=== PATIENT | male | born 1960 | race Caucasian/White ===

== ENCOUNTER 2025-05-17 02:06 | Day surgery (SDC) | payer MEDICARE, SELFPAY ==
[2025-05-02 14:03] VITALS: BMI 29.3
--- OUTSIDE RECORDS SUMMARY | 2025-05-17 02:10 | XMS_ITS | Clinical Summary ---
Author Organization [facility] Address [address] [place] [address] Care Team Providers Care Rental Sales Agent Name Role Phone Mark Gutiérrez MD Primary Care Provider [phone] Allergies Active Allergy Reactions Criticality Noted Date Comments Iodinated Contrast Media Sneezing Low Medications amLODIPine (NORVASC) 5 mg tablet Take 1 tablet (5 mg total) by mouth daily. 90 tablet 1 8 Active atorvastatin (LIPITOR) 40 mg tablet Take 1 tablet (40 mg total) by mouth daily. 90 tablet 1 8 Active lisinopril (PRINIVIL,ZESTR IL) 40 mg tablet Take 1 tablet (40 mg total) by mouth daily. 90 tablet 1 8 Active lidocaine 5 % gel Apply 2 mL topically 7 Active cyclobenzaprine (FLEXERIL) 5 mg tablet Take 1 tablet (5 mg total) by mouth 3 (three) times a day as needed for muscle spasms 60 tablet Active Additional Information Patient not taking.Reported on 07/10/2021 Active Problems Problem Noted Date Diagnosed Date Hereditary and idiopathic neuropathy 01/10/2021 Assessment & Plan (07/10/2021 12:05 PM CDT): Patient has idiopathic peripheral neuropathy. He prefers the use of ejuw-fxy-zvhsknl alpha lipoic acid for reduction of dysesthesia and paresthesia in his feet and legs to that of gabapentin. He will continue using the czhb-osj-jyjyvtq therapy at this time. He will follow-up in neurology clinic on an as-needed basis. Assessment & Plan (01/10/2021 12:04 PM GROUP WORKER): Patient has documented idiopathic peripheral neuropathy from prior evaluation and management of [facility]. Prior medical records from [facility] have been reviewed during today's visit. Neuropathic pain 01/10/2021 Assessment & Plan (01/10/2021 12:04 PM GROUP WORKER): Patient has worsening neuropathic pain associated with prior diagnosed idiopathic peripheral neuropathy. He has been using gabapentin 300 mg b.i.d. but has been noticing it to be less effective for him. I will increase his gabapentin 300 mg t.i.d. for improved neuropathic analgesia. I will see him back in 6 months time for reassessment on the increased dose. Screening for malignant neoplasm 09/06/2020 Overview (09/06/2020): Added automatically from request for surgery [id number] Levator spasm 09/05/2020 Benign neoplasm of soft tissues 04/30/2016 Skin tag 09/15/2014 Overview (02/20/2018): Impression: cryo done. Borderline diabetes mellitus 09/15/2014 Overview (02/20/2018): Impression: down to 5.5 now Hypertension 09/01/2014 Overview (02/20/2018): Impression: disc sprint trial, self monitor twice a week. Hyperlipidemia 09/01/2014 Overview (02/20/2018): Impression: well controlled. Ulcerative colitis 12/10/2012 Overview (02/20/2018): Impression: f/u gi Abdominal bloating 02/21/2011 Immunizations Immunization Administration Dates Next Due Hep A / Hep B 02/18/2012,01/08/2011 Hep B Vaccine 05/21/2013 Influenza, Trivalent, Preser vative Free, Intramuscular 09/01/2014,08/19/2012,08/19/2011,01/08 Influenza, Trivalent, Split, Preservative Free, Intradermal 09/11/2016,09/15/2015 Tetanus toxoid, adsorbed 01/08/2011 Surgical History Surgery Date Site/Laterality Comments COLONOSCOPY COLON SURGERY Medical History Medical History Date Comments Hypertension Hyperlipidemia Pouchitis (HCC) Ulcerative colitis (HCC) Neuropathy Family History Medical History Relation Name Comments Atrial fibrillation Brother Cancer Father Family history of malignant neoplasm - (Added by TW Conv) Colon cancer Father Malignant Neopl asm, Colon - parents-colon (Added by TW Conv) Cancer Mother Family history of malignant neoplasm - (Added by TW Conv) Colon cancer Mother Malignant Neopl asm, Colon - parents-colon (Added by TW Conv) Colon cancer Other Malignant Neopl asm, Colon - parents-colon (Added by TW Conv) No Known Problems Sister 1 Hypertension Sister 2 Relation Name Status Comments Brother Alive Father Mother Other Sister 1 Alive Sister 2 Alive Social History Tobacco Use Types Packs/Day Years Used Date Smoking Tobacco: Never Smokeless Tobacco: Never AUDIT-C Answer Date Recorded Q1: How often do you have a drink containing alc ohol? 2-3 times a week 01/26/2021 Q2: How many drinks containi ng alcohol do you have on a typical day when you are drinking? 1 or 2 01/26/2021 Q3: How often do you have si x or more drinks on one occasion? Never 01/26/2021 Sex and Gender Information Value Date Recorded Sex Assigned at Not on file Legal Sex Male 12:05 PM GROUP WORKER Gender Identity Not on file Sexual Orientation Not on file Obstetrics History Last Filed Vital Signs Vital Sign Reading Time Taken Comments Blood Pressure 126/86 07/10/2021 11:12 AM CDT Pulse 81 07/10/2021 11:12 AM CDT Temperature 36.6 C (97.8 F) 07/10/2021 11:12 AM CDT Respiratory Rate 19 01/26/2021 9:30 AM CDT Oxygen Saturation 94% 01/26/2021 9:30 AM CDT Inhaled Oxygen Concentration - - Weight 98.5 kg (217 lb 3.2 oz) 07/10/2021 11:12 AM CDT Height 185.4 cm (6' 1) 07/10/2021 11:12 AM CDT Body Mass Index 28.66 07/10/2021 11:12 AM CDT Plan of Treatment Not on file Insurance [employer] [place]F PPO [place] Advance Directives For more information, please contact: [phone] * Full Code (Latest Code Status on File) Date Activated Date Inactivated Comments 01/26/2021 8:09 AM 01/26/2021 2:28 PM Care Teams Rental Sales Agent Relationship Specialty Start Date End Date Mark Gutiérrez MD [address] [facility] [address] [place] [address] PCP - General Internal Medicine 08/09/20
--- OUTSIDE RECORDS SUMMARY | 2025-05-17 02:10 | XMS_ITS | Clinical Summary ---
Author Organization [facility] Address [address] [facility] [address] [place] [address] Phone Care Team Providers Care State Federal Relations Deputy Director Name Role Phone Butch Barbour Primary Care Provider Allergies Active Allergy Reactions Criticality Noted Date Comments Iodinated Contrast Media Unknown 06/27/2017 Medications lisinopril (PRINIVIL, ZESTRIL) 40 MG Tablet Take 40 mg by mouth daily. Active atorvastatin (LIPITOR) 40 MG Tablet Take 40 mg by mouth daily. Active amLODIPine (NORVASC) 5 MG Tablet Take 5 mg by mouth daily. Active [place]-3 Fatty Acids (OMEGA-3 CF PO) Take by mouth. Activ e Multiple Vitamins-Minera ls (MULTIVITAMIN PO) Take by mouth. Activ e Chlordiazepoxid e-Clidinium (LIBRAX PO)Indications: PRN for sleep Take by mouth. A ctive Lidocaine, Anorectal, 5 % GelIndications: Anal fissure 2 mL by Apply externally route 2 times daily. 2 Bottle 2 7 Active Nitroglycerin 0.4 % OintmentIndicat ions:Anal fissure 1 Inch by Rectal route 2 times daily. 2 Tube 3 7 Active Family History Medical History Relation Name Comments Alzheimer's Disease Father Colon Cancer Father Emphysema Father Colon Cancer Mother Relation Name Status Comments Father Mother Social History Tobacco Use Types Packs/Day Years Used Date Smoking Tobacco: Never Alcohol Use Standard Drinks/Week Comments No 0 (1 standard drink = 0.6 oz pur e alcohol) 2x a week Sex and Gender Information Value Date Recorded Sex Assigned at Not on file Legal Sex Male 12:09 PM CDT Gender Identity Not on file Sexual Orientation Not on file Last Filed Vital Signs Vital Sign Reading Time Taken Comments Blood Pressure 140/72 06/27/2017 3:07 PM CDT Pulse 79 06/27/2017 3:07 PM CDT Temperature 36.3 C (97.3 F) 06/27/2017 3:07 PM CDT Respiratory Rate 16 06/27/2017 3:07 PM CDT Oxygen Saturation 95% 06/27/2017 3:07 PM CDT Inhaled Oxygen Concentration - - Weight 97.1 kg (214 lb) 06/27/2017 3:07 PM CDT Height 182.9 cm (6') 06/27/2017 3:07 PM CDT Body Mass Index 29.02 06/27/2017 3:07 PM CDT Plan of Treatment Health Maintenance Due Date Last Done Comments Hepatitis C Virus (HCV) Screening 1960 TdaP Immunization 1960 Colonoscopy 2004 Colorectal Cancer Screening 2004 Cologuard 2009 Immunochemical Fecal Occult Blood 2009 Pneumococcal Immunization (5 0+ years) (1 of 1 - PCV) 2009 Zoster Immunization (1 of 2) 2009 PSA Discussion 2014 Influenza Immunization (#1) 2024 SARS-COV-2 Immunization (1 - 2023- season) 2024 Respiratory Syncytial Virus (RSV) Immunization (Adult) (1 - 1-dose 75+ series) 2034 Hepatitis B Immunization Aged Out No longer eligible based on patient's age to complete this topic Meningococcal Immunization (ACWY) Aged Out No longer eligible based on patient's age to complete this topic Rotavirus Immunization Aged Out No lo nger eligible based on patient's age to complete this topic Insurance [address] [place] [address] Care Teams State Federal Relations Deputy Director Relationship Specialty Start Date End Date Butch Barbour PAC [address] [address] [place] [address] PCP - General Physician Durable Medical Equipment Repairer 06/02/17
--- OUTSIDE RECORDS SUMMARY | 2025-05-17 02:10 | XMS_ITS | Referral Summary ---
Author Organization [facility] Address [address] [place] [address] Care Team Providers Care Public Health Worker Name Role Phone Mark Gutiérrez MD Primary Care Provider [phone]- [phone] Allergies Active Allergy Reactions Criticality Noted Date [...] peripheral neuropathy. He prefers the use of azwa-okr-hbtsiah alpha lipoic acid for reduction of dysesthesia and paresthesia in his feet and legs to that of gabapentin. He will continue using the dvjx-dlr-qxnlnwc therapy at this time. He will follow-up in neurology clinic on an as-needed basis. Assessment & Plan (01/10/2021 12:04 PM SECTION LEADER AND MACHINE SETTER): Patient has documented idiopathic peripheral neuropathy from prior evaluation and management of [facility]. Prior medical records from [facility] have been reviewed during today's visit. Neuropathic pain 01/10/2021 Assessment & Plan (01/10/2021 12:04 PM SECTION LEADER AND MACHINE SETTER): Patient has worsening neuropathic pain associated with [...] (09/06/2020): Added automatically from request for surgery [id number] Levator spasm 09/05/2020 Benign neoplasm of soft [...] Free, Intradermal 09/11/2016,09/15/2015 Tetanus toxoid, adsorbed 01/08/2011 Social History Tobacco Use Types Packs/Day Years [...] on file Legal Sex Male 12:05 PM SECTION LEADER AND MACHINE SETTER Gender Identity Not on file Sexual Orientation [...] Plan of Treatment Not on file Insurance [employer] [place] PPO [place] Advance Directives For more information, please contact: [phone] * Full Code (Latest Code Status on File) Date Activated Date Inactivated Comments 01/26/2021 8:09 AM 01/26/2021 2:28 PM Care Teams Public Health Worker Relationship Specialty Start Date End Date Mark Gutirérez MD [address] [facility] [address] [place] [address] PCP - General Internal Medicine 08/09/20
[2025-05-17 09:52] VITALS: BP 146/90; PULSE 67; RESP 20; TEMP 36.4; O2SAT 98
--- NOTE | 2025-05-17 09:57 | PM.IMHP ---
H&P: [facility] History of Present Illness Date/Time: 05/17/25 09:57 Chief Complaint: History of total proctocolectomy Narrative: the patient is offered from longstanding ulcerative colitis and underwent a total proctocolectomy in 1998. he has an ileal anal pouch. Currently he has between 5 and 10 bowel movements per day but nonbloody and depending on what he eats. He is referred for pouchoscopy. Review of Systems Review of Systems: All systems reviewed & are unremarkable except as noted in HPI and below PMFSH Past Medical History Medical History BMI 30.0-30.9,adult Screening for prostate cancer Paresthesias History of bloody stools Essential hypertension Dietary counseling and surveillance (05/26/17) IBS (irritable bowel syndrome) HLD (hyperlipidemia) Wears glasses Closed fracture of distal end of left fibula Surgical History Surgical History S/P proctocolectomy Family History Family History Mother Carcinoma of colon Father Alzheimer disease Sibling Patient's sister is in good health Patient's brother is in good health Social History Social History Smoking status: Never smoker Second hand tobacco smoke exposure: No Alcohol intake: current Drinks per week: 4 Substance use: never Substance use type: does not use Do You Feel Safe in your Home?: Yes Lack of Transportation: No Lack of Food: Never True Current Housing: I Have Housing Concerned About Future Housing: No Difficulty Paying Gas/Electric Bills: No Difficulty Paying for Meds: No Currently Unemployed: No Education: Associate Degree Difficulty w/ Childcare or Family Care: No Living arrangements: alone Occupation/Education: occupation 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[employer] Gender identity (if verbalized by the patient): Male Sexual Orientation (if Verbalized by the Patient): Straight or Heterosexual Spiritual care concerns: No Meds Home Medications and Allergies Home Medications ?Medication ?Instructions ?Recorded ?Confirmed ?Type amlodipine 5 mg tablet See Rx Instructions .Route 03/10/25 05/17/25 Rx .COMPLEX #90 tabs atorvastatin 40 mg tablet See Rx Instructions .Route 03/10/25 05/17/25 Rx .COMPLEX #90 tabs lisinopril 40 mg tablet See Rx Instructions .Route 03/10/25 05/17/25 Rx .COMPLEX #90 tabs Allergies Allergy/AdvReac Type Severity Reaction Status Date / Time Iodinated Contrast Media Allergy Sneezing Verified 05/17/25 09:51 Vital Signs Vital Signs - 24 hr 05/17/25 09:52 Temperature 97.6 F Pulse Rate 67 Respiratory Rate 20 Blood Pressure 146/90 H Pulse Oximetry 98 Oxygen Delivery Room Air Exam Const: General: cooperative and healthy appearing Resp: Effort & Inspection: normal respiratory effort and able to speak in complete sentences Auscultation: clear to auscultation bilaterally Cardio: Rate: regular rate Rhythm: regular rhythm GI: Inspection: normal to inspection GI Palp: No No hepatosplenomegaly present Auscultation: normal bowel sounds Rectal Exam: deferred Skin: General skin exam: normal color Psych: Appearance: grossly normal Mental Status: mental status grossly normal Assessment and Plan Assessment and plan (1) S/P proctocolectomy: Code(s): Z90.49 - Acquired absence of other specified parts of digestive tract Status: Acute Assessment and Plan: The patient is deemed a good candidate for the procedure. Consent signed. Will proceed.
--- NOTE | 2025-05-17 09:58 | P.PNAN_ITS ---
Anes - Initial Pre Proc Eval Procedure: Operation Date: 05/17/25 11:00 Proposed Procedures p Flexible Sigmoidoscopy - Jamie Olivia MD Date/Time: 05/17/25 09:58 Surgeon: Jamie Olivia MD Pre Op Diagnosis: Acquired absence of other specified parts Patient Data Age: 64 Gender: M Height: 1.85 m Weight: 98.6 kg Last Vital Signs Temp 36.4 C 05/17/25 09:52 Pulse 67 05/17/25 09:52 Resp 20 05/17/25 09:52 BP 146/90 H 05/17/25 09:52 Pulse Ox 98 05/17/25 09:52 O2 Del Method Room Air 05/17/25 09:52 Allergies Allergy/AdvReac Type Severity Reaction Status Date / Time Iodinated Contrast Media Allergy Sneezing Verified 05/17/25 09:51 Home Medications ?Medication ?Instructions ?Recorded ?Confirmed ?Type amlodipine 5 mg tablet See Rx Instructions .Route 03/10/25 05/17/25 Rx .COMPLEX #90 tabs atorvastatin 40 mg tablet See Rx Instructions .Route 03/10/25 05/17/25 Rx .COMPLEX #90 tabs lisinopril 40 mg tablet See Rx Instructions .Route 03/10/25 05/17/25 Rx .COMPLEX #90 tabs Patient hx anesthesia problems: none Family hx anesthesia problems: none Results Review: All pre-operative results and documents have been reviewed as part of the pre- operative evaluation. [facility] Past Medical History Medical History BMI 30.0-30.9,adult Screening for prostate cancer Paresthesias History of bloody stools Essential hypertension Dietary counseling and surveillance (05/26/17) IBS (irritable bowel syndrome) HLD (hyperlipidemia) Wears glasses Closed fracture of distal end of left fibula Surgical History Surgical History S/P proctocolectomy Family History Family History Mother Carcinoma of colon Father Alzheimer disease Sibling Patient's sister is in good health Patient's brother is in good health Social History Social History Smoking status: Never smoker Second hand tobacco smoke exposure: No Alcohol intake: current Drinks per week: 4 Substance use: never Substance use type: does not use Do You Feel Safe in your Home?: Yes Lack of Transportation: No Lack of Food: Never True Current Housing: I Have Housing Concerned About Future Housing: No Difficulty Paying Gas/Electric Bills: No Difficulty Paying for Meds: No Currently Unemployed: No Education: Associate Degree Difficulty w/ Childcare or Family Care: No Living arrangements: alone Occupation/Education: occupation 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 Gender identity (if verbalized by the patient): Male Sexual Orientation (if Verbalized by the Patient): Straight or Heterosexual Spiritual care concerns: No Anes - Eval Final PreProcedure Day of Procedure 05/17/25 09:58 Patient weight: overweight Heart: regular rate and rhythm Lungs: normal air movement Airway: Mallampati scale class III Neurological: alert and oriented Last oral intake: >/= 8 hours ASA classification: III Emergent: no Anesthetic plan: proceed Anesthesia type and monitoring: general GIVS and standard monitoring Results Review: All pre-operative results and documents have been reviewed as part of the pre- operative evaluation. Informed Consent: The patient's anesthetic plan and its attendant risks and benefits were discussed with the patient/family/POA. Questions were solicited and answers provided to the satisfaction of the patient/family/POA.
[2025-05-17] MEDS: LACTATED RINGERS 1,000 ML 150 ML IV CONT (10:06)
--- NOTE | 2025-05-17 10:22 | S_PTH ---
PATIENT: David Sequeira LOC: ALEX #:[id number] AGE/SX: 64/M ROOM: RE05/17/[address]: Jamie Olivia MD : 1960 BED: DIS: 05/17/2025 SPEC #: [id number] RECD: 05/17/25 10:40 STATUS: FOX REQ #: [id number] MANNY: 05/17/25 10:[address]: Jamie Olivia DEPT: [facility] Surgical RECD BY: Bridgette Steward ENTERED: 05/17/25 10:41 SP TYPE: Surgical OTHR DR: Vishal Abernathy APRN Tissues: A - Colon Biopsy Procedures: Hematoxylin and Eosin Stain Gross and Microscopic Level 4
[2025-05-17 10:24] VITALS: BP 106/64; PULSE 72; RESP 16; O2SAT 95
[2025-05-17 10:34] VITALS: BP 124/78; PULSE 69; RESP 18; O2SAT 96
[2025-05-17 10:44] VITALS: BP 142/96; PULSE 71; RESP 16; O2SAT 100
== END 2025-05-17 11:00 | disposition home or self-care (01) ==
PROVIDERS: PCP Nurse Practitioner; Visit Provider Internal Medicine Gastroenterology
PROC: 0DJD8ZZ Inspection of Lower Intestinal Tract, Via Natural or Artificial Opening Endoscopic (ICD-10-PCS; CPT 45330; principal; 2025-05-17 11:00)
DX: Z09 Encounter for follow-up examination after completed treatment for conditions other than malignant neoplasm (principal); K91.850 Pouchitis; E78.5 Hyperlipidemia, unspecified; R20.2 Paresthesia of skin; I10 Essential (primary) hypertension; K58.9 Irritable bowel syndrome, unspecified; Z90.49 Acquired absence of other specified parts of digestive tract; Z98.0 Intestinal bypass and anastomosis status; Z80.0 Family history of malignant neoplasm of digestive organs
CPT/HCPCS: 45331; 88305; J2003; J2704; J7120